=== PATIENT | female | born 1950 | race Caucasian/White ===

== ENCOUNTER 2017-06-20 22:40 | Inpatient (IN) | payer MEDICARE, OTHER ==
[~2017-06-20] VITALS: Ht 162.6 cm; Wt 151.1 kg
[~2017-06-20 22:40] MED LIST: ASPI-1265 PO; BACL20TA PO; CHOL10002 PO; DOXE50CA4 PO; ESOM40CA30 PO; FOLI200T11; HYDR-569 PO; METO-467 PO; NAPR-56 PO; QUET300T19 PO; TOPI100T18 PO
[2017-06-20 23:40] VITALS: BP 139/77
[2017-06-21] MEDS ORDERED: DOCU-28 PO (00:41)
[2017-06-21] MEDS ORDERED: ALB0.5UD IH (00:43)
[2017-06-21] MEDS ORDERED: albuterol 2.5 MG/3 ML nebule NEB PRN (02:45)
[2017-06-21] MEDS ORDERED: temazepam 15mg capsule PO ONE (03:20)
[2017-06-21] MEDS ORDERED: HYDROcodone/acetaminophen 5mg/325mg tablet PO PRN (03:30)
[2017-06-21 08:00] VITALS: BP 126/96
[2017-06-21] MEDS: naproxen 500mg tablet PO SCH ×2 (08:36→21:29)
[2017-06-21] MEDS: pantoprazole 40mg Tablet.DR PO SCH (08:36)
[2017-06-21] MEDS: multivitamins, therapeutics tablet PO SCH (08:36)
[2017-06-21] MEDS: baclofen 10mg tablet PO SCH ×2 (08:36→21:28)
[2017-06-21] MEDS: vitamin D (cholecalciferol) 1,000 unit tablet PO SCH (08:36)
[2017-06-21] MEDS: aspirin 81mg tab.chew PO SCH (08:37)
[2017-06-21] MEDS: docusate sod 100mg capsule PO SCH (08:37)
[2017-06-21] MEDS: topiramate 100mg tablet PO SCH ×2 (08:37→21:29)
[2017-06-21] MEDS: metoprolol tartrate 25mg tablet PO SCH ×2 (08:37→21:27)
[2017-06-21 08:51] LABS: HEMOGLOBIN A1C 5.5 % (4.5-6.2)
[2017-06-21 08:56] LABS: CHOL/HDL RATIO 1.8 (0.00-4.99); CHOLESTEROL 134 MG/DL (0-200); HDL CHOLESTEROL 75 MG/DL (35-60); LDL CHOLESTEROL 58 MG/DL (50-100); TRIGLYCERIDES 61 MG/DL (20-135)
[2017-06-21] MEDS: potassium chloride 8mEq ER tablet PO SCH ×2 (17:29→21:29)
[2017-06-21 19:18] VITALS: BP 108/53
[2017-06-21] MEDS ORDERED: doxepin 25mg capsule PO SCH (21:00)
[2017-06-21] MEDS: doxepin 25mg capsule PO SCH (21:26)
[2017-06-21] MEDS: quetiapine 100mg tablet PO SCH (21:28)
[2017-06-21] MEDS: traZODone 50mg tablet PO SCH (21:40)
[2017-06-22] MEDS: pantoprazole 40mg Tablet.DR PO SCH (07:35)
[2017-06-22] MEDS: levoTHYROXINE 25mcg tablet PO SCH (07:35)
[2017-06-22 07:42] VITALS: BP 120/60
[2017-06-22] MEDS: topiramate 100mg tablet PO SCH ×2 (08:23→20:01)
[2017-06-22] MEDS: vitamin D (cholecalciferol) 1,000 unit tablet PO SCH (08:23)
[2017-06-22] MEDS: baclofen 10mg tablet PO SCH ×2 (08:23→20:00)
[2017-06-22] MEDS: metoprolol tartrate 25mg tablet PO SCH ×2 (08:23→20:01)
[2017-06-22] MEDS: aspirin 81mg tab.chew PO SCH (08:23)
[2017-06-22] MEDS: naproxen 500mg tablet PO SCH ×2 (08:23→20:01)
[2017-06-22] MEDS: multivitamins, therapeutics tablet PO SCH (08:23)
[2017-06-22] MEDS: docusate sod 100mg capsule PO SCH (08:23)
[2017-06-22 09:11] LABS: ALBUMIN 3.1 G/DL (3.4-5.0); ANION GAP 7 (8-16); BLOOD UREA NITROGEN 18 MG/DL (7-18); BUN/CREATININE RATIO 18.8 (6.6-38.0); CHLORIDE 108 MMOL/L (99-107); CREATININE 0.96 MG/DL (0.40-0.90); GLUCOSE 102 MG/DL (70-104); MAGNESIUM 2.1 MG/DL (1.5-2.4); POTASSIUM 3.6 MMOL/L (3.5-5.1); SODIUM 141 MMOL/L (135-145); TOTAL CARBON DIOXIDE 25.7 MMOL/L (24-32); eGFR 58 ML/MIN
[2017-06-22 19:34] VITALS: BP 156/89
[2017-06-22] MEDS: quetiapine 100mg tablet PO SCH (20:02)
[2017-06-22] MEDS: traZODone 50mg tablet PO SCH (20:02)
[2017-06-22] MEDS: doxepin 25mg capsule PO SCH (20:06)
[2017-06-23 07:32] VITALS: BP 106/59
[2017-06-23] MEDS: multivitamins, therapeutics tablet PO SCH (08:38)
[2017-06-23] MEDS: topiramate 100mg tablet PO SCH ×2 (08:38→20:00)
[2017-06-23] MEDS: metoprolol tartrate 25mg tablet PO SCH ×2 (08:38→20:00)
[2017-06-23] MEDS: docusate sod 100mg capsule PO SCH (08:38)
[2017-06-23] MEDS: pantoprazole 40mg Tablet.DR PO SCH (08:38)
[2017-06-23] MEDS: baclofen 10mg tablet PO SCH ×2 (08:38→20:00)
[2017-06-23] MEDS: vitamin D (cholecalciferol) 1,000 unit tablet PO SCH (08:38)
[2017-06-23] MEDS: levoTHYROXINE 25mcg tablet PO SCH (08:39)
[2017-06-23] MEDS: aspirin 81mg tab.chew PO SCH (08:39)
[2017-06-23] MEDS: naproxen 500mg tablet PO SCH ×2 (08:43→20:00)
[2017-06-23] MEDS ORDERED: LEVO25TA7 PO (17:22)
[2017-06-23] MEDS ORDERED: DOXE50CA4 PO (17:22)
[2017-06-23] MEDS ORDERED: TRAZ-143 PO (17:22)
[2017-06-23 19:45] VITALS: BP 138/88
[2017-06-23 20:00] VITALS: BP 138/88
[2017-06-23] MEDS: doxepin 25mg capsule PO SCH (20:21)
[2017-06-23] MEDS: quetiapine 100mg tablet PO SCH (20:21)
[2017-06-23] MEDS: traZODone 50mg tablet PO SCH (20:21)
== END 2017-06-23 19:45 | disposition home or self-care (01) | DRG 885 ==
LOC: ADULT MH 22:40
PROVIDERS: ADMIT Psychiatry & Neurology Psychiatry; ATTEND Psychiatry & Neurology Psychiatry
DX: F29 Unspecified psychosis not due to a substance or known physiological condition (principal); G89.29 Other chronic pain; T50.904D Poisoning by unspecified drugs, medicaments and biological substances, undetermined, subsequent encounter; I10 Essential (primary) hypertension; K21.9 Gastro-esophageal reflux disease without esophagitis; R25.1 Tremor, unspecified; Z88.0 Allergy status to penicillin; Z91.048 Other nonmedicinal substance allergy status; Z79.899 Other long term (current) drug therapy; Z79.82 Long term (current) use of aspirin; Y92.89 Other specified places as the place of occurrence of the external cause
CPT/HCPCS: 36415; 80048; 80061; 83036; 83735; 87070; 94760

== ENCOUNTER 2021-09-05 09:57 | Outpatient (CLI) | payer MEDICARE, OTHER ==
[~2021-09-05] VITALS: Ht 162.6 cm; Wt 108.9 kg
[~2021-09-05 09:57] MED LIST changes: +ALBU18HF2; -BACL20TA PO; -CHOL10002 PO; +DOXE100C21 PO; -DOXE50CA4 PO; +DYAZIDE PO; -ESOM40CA30 PO; +FLUT12AE4 IH; -FOLI200T11; -HYDR-569 PO; +LEVO75TA7 PO; -NAPR-56 PO; +NAPR220C15 PO; +OMEP40CA21 PO; -QUET300T19 PO; -TOPI100T18 PO; +TRAZ-256 PO; +VITAMIN C; +Vitamin D PO
[2021-09-05 10:35] LABS: BASOPHILS # (AUTO) 0.1 X10'3 (0-0.2); BASOPHILS % (AUTO) 0.8 % (0-1); EOSINOPHILS # (AUTO) 0.1 X10'3 (0-0.9); LYMPHOCYTES # (AUTO) 1.4 X10'3 (1.1-4.8); MEAN PLATELET VOLUME 8.1 FL (7.4-10.4); MONOCYTES # (AUTO) 0.5 X10'3 (0-0.9); NEUTROPHILS % (AUTO) 67.8 % (42-75); WHITE BLOOD COUNT 6.4 X10'3 (4.5-11.0)
[2021-09-05 10:36] LABS: HEMOGLOBIN 12.7 g/dl (12.0-16.0); LYMPHOCYTES % (AUTO) 22.2 % (21-51); MEAN CORPUSCULAR HEMOGLOBIN 29.4 PG (27.0-31.0); MEAN CORPUSCULAR HGB CONC 33.3 g/dL (33.0-36.5); MEAN CORPUSCULAR VOLUME 88.5 FL (78-98); MONOCYTES % (AUTO) 7.2 % (2-12); NEUTROPHILS # (AUTO) 4.3 X10'3 (1.8-7.7); PLATELET COUNT 280 X10'3 (140-440); RED CELL DISTRIBUTION WIDTH 14.3 % (11.5-14.5)
[2021-09-05 10:42] LABS: APTT 26 SECONDS (22-32)
[2021-09-05 10:53] LABS: ALANINE AMINOTRANSFERASE 14 U/L (12-78); ALBUMIN 3.1 G/DL (3.4-5.0); ALBUMIN/GLOBULIN RATIO 0.7 (1.1-1.5); ALKALINE PHOSPHATASE 84 IU/L (46-116); ANION GAP 7 (8-16); ASPARTATE AMINO TRANSFERASE 18 U/L (10-37); BILIRUBIN,TOTAL 0.3 MG/DL (0.1-1.0); BLOOD UREA NITROGEN 21 MG/DL (7-18); BUN/CREATININE RATIO 24.4 (6.6-38.0); CHLORIDE 105 MMOL/L (99-107); CREATININE 0.86 MG/DL (0.40-0.90); GLUCOSE 109 MG/DL (70-104); POTASSIUM 3.9 MMOL/L (3.5-5.1); SODIUM 139 MMOL/L (135-145); TOTAL CARBON DIOXIDE 27.1 MMOL/L (24-32); TOTAL PROTEIN 7.5 G/DL (6.4-8.2); eGFR 65 ML/MIN
[2021-09-05] MEDS ORDERED: IODIXANOL 320 MG/ML INFUS..BTL 100ML IV ONE (10:53)
[2021-09-05] MEDS ORDERED: IODIXANOL 320 MG/ML INFUS..BTL 50ML IV ONE (10:53)
[2021-09-05 11:41] LABS: ABG HCO3 25.4 mmol/L (22.0-26.0); ABG OXYGEN SATURATION 94.7 % (94-97); ABG PO2 (T) 69.1 mmHg (75.0-100.0); ALLEN'S TEST POSITIVE; FMetHb 0.3 % (0.0-1.5); FO2Hb 93.5 % (94-97); TOTAL HEMOGLOBIN 13.3 G/dl (12.0-16.0)
[2021-09-05] MEDS ORDERED: albuterol 2.5 MG/3 ML nebule NEB ONE (12:10)
== END 2021-09-05 23:59 | disposition home or self-care (01) ==
LOC: 64 CT 09:57
PROVIDERS: ATTEND Internal Medicine Cardiovascular Disease
DX: K86.89 Other specified diseases of pancreas (principal); I70.0 Atherosclerosis of aorta; R59.0 Localized enlarged lymph nodes; J98.11 Atelectasis; M25.78 Osteophyte, vertebrae; I35.0 Nonrheumatic aortic (valve) stenosis; R06.02 Shortness of breath; I65.29 Occlusion and stenosis of unspecified carotid artery
CPT/HCPCS: 36600; 71046; 71275; 74174; 80053; 82803; 85018; 85025; 85610; 85730; 94060; 94727; 94729; 94760; Q9967